=== PATIENT | male | born 1995 | race Asian ===

== ENCOUNTER → 2021-01-25 | Outpatient (CLI) | payer OTHER ==
--- NOTE | 2021-01-29 10:11 | ECHO ---
DATE OF PROCEDURE: 01/25/2021 Age: 25 Gender: Male Height: 185 cm Weight: 122 kg REFERRING PHYSICIAN: Tai Olmos M.D. INDICATION: Cardiac murmur, unspecified. MEASUREMENTS: 2D Measurements: Left ventricle diastole 4.9 cm Intraventricular septum 1.10 cm Posterior wall 1.09 cm Aortic root 2.5 cm Left atrium 4.5 cm Left atrial volume index 19 cm Inferior vena cava 1.3 cm Doppler Measurements: No aortic regurgitation Aortic valve velocity 143 cm/s LVOT velocity 111 cm/s LVOT VTI 24.2 cm Trace mitral regurgitation within normal limits Mitral E velocity 74.1 cm/s Mitral A velocity 26.0 cm/s Mitral deceleration time 240 msec Very mild tricuspid regurgitation within normal limits Estimated right ventricular systolic pressure 24-29 mmHg Estimated right atrial pressure 5-10 mmHg Very mild pulmonic regurgitation Pulmonary artery acceleration time 132 msec MITRAL ANNULAR TISSUE DOPPLER E prime septal 11.9 cm/s, E prime lateral 17.6 cm/s DESCRIPTION: Rhythm was sinus bradycardia. Image quality was good. No pericardial effusion. This was a 2D, M-mode, color flow Doppler, and pulsed wave Doppler examination including mitral annular tissue Doppler. CONCLUSIONS: 1. Normal echocardiogram Doppler. 2. LVEF 60% by visual estimate. 3. Normal LV diastolic function. MTDD
== END ==
LOC: M CARPUL 09:53
PROVIDERS: ATTEND Internal Medicine
DX: R01.1 Cardiac murmur, unspecified (principal)